=== PATIENT | female | born 1935 | race Caucasian/White ===

== ENCOUNTER 2018-10-26 01:16 | Inpatient (IN) | payer OTHER ==
[~2018-10-26] VITALS: Ht 162.6 cm; Wt 67.9 kg
--- NOTE | ~2018-10-26 | CON ---
[place], [place] REPORT OF CONSULTATION NAME: KRISSY SIDDIQI UNIT #: [id number] ROOM: [facility] DOCTOR: ESAU TRAN,DENVER BIRTHDATE: [birth year] DOS: 10/26/2018 ADDENDUM This note is an addendum to the note dictated by Dr. Garcia. I personally examined and assessed the patient today. MEDICATIONS, ALLERGIES AND HISTORY: Reviewed. I did independent examination of the patient and case was discussed with the patient and her family members as well as referring physician. The patient was admitted for syncope and noted to have elevated cardiac enzymes. Denies any chest pain. Physical exam was unremarkable except grade 1/6 systolic murmur. EKG and labs were reviewed. IMPRESSION: 1. Non-ST elevation myocardial infarction. 2. Syncope. 3. Pneumonia. 4. Urinary tract infection. 5. Hypertension. RECOMMENDATIONS: Continue aspirin, beta blockers, and heparin. Recommend cardiac catheterization due to non-ST elevation myocardial infarction. Risks and complications discussed. The patient is agreeable as was her family is agreeable. I tentatively scheduled her for cardiac catheterization on Monday due to her pneumonia and urinary tract infection. DENVER CIFUENTES MD CM:CONSTR:REPORT OF CONSULTATION 1829 10/27/18 2306 interface
--- NOTE | ~2018-10-26 | EKG ---
[place], [place] ELECTROCARDIOGRAM REPORT NAME: KRISSY SIDDIQI UNIT #: [id number] ROOM: [facility] DOCTOR: MILLIE DRAFT REPORT BIRTHDATE: [birth year] [facility] Test Date: 2018-10-27 Test Time: 05:40:14 Pat Name: KRISSY SIDDIQI Department: Room: [place] [address] Gender: F Antique Furniture Reproducer: Kaiden Alvarez : 1935 Requested By: LOYDA ABDULLAHI Order Number: [id number] Reading MD: Kaiden Candelario MD Measurements Intervals [place] Rate: 93 P: 66 [place]: 127 QRS: 35 QRSD: 77 T: 257 QT: 373 QTc: 465 Interpretive Statements Sinus rhythm Repol abnrm, prob ischemia, anterolateral lds Compared to ECG 10/26/2018 07:37:32 Premature atrial contractions are no longer present Electronically Signed On 10-31-2018 15:32:45 PST by Kaiden Candelario MD CM:EKGRPT:ELECTROCARDIOGRAM REPORT 0540 1532 LOYDA CHAVARRIA DRAFT REPORT LOYDA ABDULLAHI DO
--- NOTE | ~2018-10-26 | EKG ---
[place], [place] ELECTROCARDIOGRAM REPORT NAME: KRISSY SIDDIQI UNIT #: [id number] ROOM: [facility] DOCTOR: MILLIE DRAFT REPORT BIRTHDATE: [birth year] [facility] Test Date: 2018-10-26 Test Time: 07:37:32 Pat Name: KRISSY SIDDIQI Department: Room: [facility] Gender: F Piper Helper: Destiny Rhodes : 1935 Requested By: ANTONY HARRIS Order Number: [id number] Reading MD: Sarah Greer Measurements Intervals [place] Rate: 81 P: 68 [place]: 138 QRS: 38 QRSD: 83 T: 32 QT: 439 QTc: 510 Interpretive Statements Sinus rhythm Multiple ventricular premature complexes Consider left ventricular hypertrophy ST depr, consider ischemia, anterolateral lds Prolonged QT interval No previous ECG available for comparison Electronically Signed On 10-26-2018 12:53:37 PST by Sarah Greer CM:EKGRPT:ELECTROCARDIOGRAM REPORT 0737 1253 ANTONY HARRIS EPIPHANY DRAFT REPORT ANTONY HARRIS
--- NOTE | ~2018-10-26 | CON ---
[place], [place] REPORT OF CONSULTATION NAME: KRISSY SIDDIQI UNIT #: [id number] ROOM: [facility] DOCTOR: ALYSSA VILLAVICENCIO MD BIRTHDATE: [birth year] DOS: 10/26/2018 PULMONARY CONSULTATION, EVALUATION AND MANAGEMENT REASON FOR CONSULTATION: To assess the patient's current pulmonary nodule and acute pneumonia. HISTORY OF PRESENT ILLNESS: This 83-year-old female who has been brought to the hospital. The patient has been reported symptoms of acute cold as per daughter. She was noted very poor historian. The history was obtained mostly from the patient's daughter. She has been noted acute chest cold couple of weeks ago as per daughter. She has been treated for that and reported improvement in symptoms and then later on noted with recurrence of symptoms. The patient is with increased chest congestion and cough. The patient was also noted symptoms of dizziness with that. There were no symptoms of chest pain reported by the patient. The patient does have some symptoms of shortness of breath. Denies symptoms of wheezing. Denies symptoms of hemoptysis. REVIEW OF SYSTEMS: CONSTITUTIONAL SYMPTOMS: The patient denies symptoms of tiredness, fever or chills. EYES: Denies burning, redness, or tenderness. EARS, NOSE, THROAT SYMPTOMS: Denies sore throat, hoarseness, otalgia, postnasal drainage or epistaxis. CARDIOVASCULAR: Denies angina pain, palpitation, or edema of the lower extremities. GASTROINTESTINAL: Denies dysphagia, nausea, vomiting, diarrhea, abdominal pain, dysphagia, or abnormal weight loss. GENITOURINARY: No dysuria, suprapubic pain, or hematuria. MUSCULOSKELETAL SYMPTOMS: Denies any joint pain, redness or tenderness. CENTRAL NERVOUS SYSTEM: Complains of dizziness, but there were no syncopal episode reported. No tingling sensation of the lower extremity. Remaining systems reviewed, they were noted all negative. PAST MEDICAL HISTORY: Reported: 1. History of gastroesophageal reflux. 2. The patient with the memory loss with the possibility of early dementia. 3. History of depression. 4. Gastroesophageal reflux disease. PAST SURGICAL HISTORY: Reported known past surgery. SOCIAL HISTORY: Noted and lives at home. She has been noted tobacco use with the patient as a pack of cigarettes per day that was discontinued many years ago. Details were not reported. FAMILY HISTORY: The patient was known for father with complication related to malignancy and mother from natural causes. [place], [place] REPORT OF CONSULTATION NAME: KRISSY SIDDIQI UNIT #: [id number] ROOM: [facility] DOCTOR: LANEY DE JESUS MD,ALYSSA BIRTHDATE: [birth year] HOME MEDICATIONS: Use of zolpidem, Effexor and omeprazole. Medication, which has been used administered on this admission are aspirin 81 mg p.o. daily, Lipitor 80 mg at bedtime, vitamin D 50,000 international units daily, metoprolol tartrate 25 mg b.i.d., Effexor 75 mg daily, Mucinex 1200 mg b.i.d. Neutra-Phos 1.45 grams with meals t.i.d., omeprazole 20 mg daily, DuoNeb q. 4 hours, IV heparin therapeutic dose for the non-Q-wave MT protocol, Zithromax and IV Rocephin. DRUG ALLERGIES: As noted with no known drug allergies. PHYSICAL EXAMINATION: GENERAL: An 83-year-old white female currently noted comfortable resting on her bed without any acute distress this morning of assessment. Height of 5 feet 4 inches, weight 143 pounds, BMI 24. VITAL SIGNS: Recorded since admission, temperature admission 99.9 degree Fahrenheit, later afebrile, respiratory rate of 16-15, heart rate 74-79, blood pressure 132/56-153/61. The pulse oxygen saturation was recorded as 98% saturation at rest on room air. HEENT: Examination shows head was atraumatic. Eyes nonicterus. NECK: Supple. CARDIOVASCULAR: S1, S2 is audible. LUNGS: The patient was noted with crackles in the left lower lung. No wheezing. ABDOMEN: Soft, nontender. Bowel sounds present. EXTREMITIES: Noted without any acute edema. CENTRAL NERVOUS SYSTEM: Grossly intact without any focal deficit. MUSCULOSKELETAL: Without any gross deformities. LABORATORY DATA: CBC on 10/26/2018, this morning in the Emergency Room, WBC count 11.7, hemoglobin 10.7, platelet count was normal. The PT, PTT this morning was normal as well on admission. CMP on admission, normal BUN and creatinine. Sodium 134. Troponin 0.559. Phosphorus and magnesium, phosphorus 1.7, magnesium 2.6. The CBC repeated after admission to Intensive Care Unit, WBC count rather 11.9, hemoglobin 11.4, platelet count 335,000, which was normal. The BMP was noted as normal BUN and creatinine. The chest x-ray was noted with patchy infiltration was noted in the left lower lung. CT scan of the chest, which was done as well was seen with the findings of a large area of consolidation, infiltration noted in the left lower lobe. Mediastinal structure assessment suboptimal because of lack of IV contrast. Mild lymphadenopathy would be considered. Area of pleural thickening noted in the right apex, possibility of nodules at that time was reported by the radiologist not convincing finding to be at 1.8 x 0.8 cm in size. A 7 mm nodule noted in the left upper lung as a mucus impaction. A 4 mm nodule in the left fissure is intraparenchymal lymph node would be considered. There were no pleural effusions. There were no findings of gross emphysema. IMPRESSION: 1. The patient who had been currently admitted to the hospital with acute pneumonia complicated after the acute viral infection as an outpatient would be considered as a diagnosis between Staph aureus and Strep pneumonia complicated [place], [place] REPORT OF CONSULTATION NAME: KRISSY SIDDIQI UNIT #: [id number] ROOM: [facility] DOCTOR: LANEY DE JESUS MD,[facility] BIRTHDATE: [birth year] after the viral infection. 2. Question of the nodule in the right apex versus pleural thickening. 3. Intraparenchymal lymph node also noted in the left major fissure. 4. Possibility of dementia as well. 5. Past history of tobacco use. No diagnosed history of chronic obstructive pulmonary disease. PLAN OF MANAGEMENT: The patient will be continued on current medical management plan by cardiac service and non-ST segment elevated myocardial infarction consideration with medications, which are already ordered including the heparin. Antibiotic will be changed for coverage for the Staph aureus infection as well because of the current viral infection. Zithromax will be continued. Other assessment for the pneumonia has been ordered as well. Blood cultures had been taken. Other additional treatment changes will be made based on the progression of the illness. The patient assessment of pulmonary nodule will be recommended, but only after the resolution of pneumonia. The CT scan of the chest only needs to be repeated initially prior to making any further consideration for the pulmonary nodule other abnormalities. Thanks for allowing me to participate in the care of this patient. ALYSSA DAVISON MD CM:CONSTR:REPORT OF CONSULTATION 1255 11/06/18 0819 interface
--- NOTE | ~2018-10-26 | EKG ---
[place], [place] ELECTROCARDIOGRAM REPORT NAME: KRISSY SIDDIQI UNIT #: [id number] ROOM: [facility] DOCTOR: MILLIE DRAFT REPORT BIRTHDATE: [birth year] [facility] Test Date: 2018-10-27 Test Time: 03:08:45 Pat Name: KRISSY SIDDIQI Department: Room: [place] [address] Gender: F Didactic Program In Dietetics Director: : 1935 Requested By: LOYDA ABDULLAHI Order Number: [id number] Reading MD: Kaiden Candelario MD Measurements Intervals [place] Rate: 82 P: 66 [place]: 129 QRS: 33 QRSD: 79 T: 6 QT: 425 QTc: 497 Interpretive Statements Sinus rhythm Atrial premature complex Abnrm T, consider ischemia, anterolateral lds Compared to ECG 10/26/2018 07:37:32 Ventricular premature complex(es) no longer present Possible ischemia still present Electronically Signed On 10-30-2018 21:17:34 PST by Kaiden Candelario MD CM:EKGRPT:ELECTROCARDIOGRAM REPORT 16 LOYDA CHAVARRIA DRAFT REPORT LOYDA ABDULLAHI DO
--- NOTE | ~2018-10-26 | EKG ---
[place], [place] ELECTROCARDIOGRAM REPORT NAME: KRISSY SIDDIQI UNIT #: [id number] ROOM: [facility] DOCTOR: MILLIE DRAFT REPORT BIRTHDATE: [birth year] [facility] Test Date: 2018-10-26 Test Time: 04:24:16 Pat Name: KRISSY SIDDIQI Department: Room: [facility] Gender: F Manager Maintenance: Bela Taylor : 1935 Requested By: ANTONY HARRIS Order Number: [id number] Reading MD: Sarah Greer Measurements Intervals [place] Rate: 75 P: 69 [place]: 130 QRS: 40 QRSD: 83 T: 49 QT: 444 QTc: 496 Interpretive Statements Sinus rhythm Abnormal R-wave progression, early transition Consider left ventricular hypertrophy ST depr, consider ischemia, anterolateral lds Borderline prolonged QT interval Electronically Signed On 10-26-2018 12:53:25 PST by Sarah Greer CM:EKGRPT:ELECTROCARDIOGRAM REPORT 0424 1253 ANTONY HARRIS EPIPHANY DRAFT REPORT ANTONY HARRIS
--- NOTE | ~2018-10-26 | EKG ---
[place], [place] ELECTROCARDIOGRAM REPORT NAME: KRISSY SIDDIQI UNIT #: [id number] ROOM: [facility] DOCTOR: MILLIE DRAFT REPORT BIRTHDATE: [birth year] [facility] Test Date: 2018-10-27 Test Time: 00:30:33 Pat Name: KRISSY SIDDIQI Department: Room: [place] [address] Gender: F Rug Measurer: : 1935 Requested By: LOYDA ABDULLAHI Order Number: [id number] Reading MD: Kaiden Candelario MD Measurements Intervals [place] Rate: 86 P: 73 [place]: 131 QRS: 46 QRSD: 79 T: 68 QT: 405 QTc: 485 Interpretive Statements Sinus rhythm Multiple premature complexes, vent \T\ supraven Abnrm T, consider ischemia, anterolateral lds Baseline wander in lead(s) V4,V5 Compared to ECG 10/26/2018 07:37:32 Possible ischemia still present Electronically Signed On 10-30-2018 21:16:06 PST by Kaiden Candelario MD CM:EKGRPT:ELECTROCARDIOGRAM REPORT 15 LOYDA CHAVARRIA DRAFT REPORT LOYDA ABDULLAHI DO
--- NOTE | ~2018-10-26 | CON ---
[place], [place] REPORT OF CONSULTATION NAME: KRISSY SIDDIQI UNIT #: [id number] ROOM: [facility] DOCTOR: KRISTI MENENDEZ MD BIRTHDATE: [birth year] DOS: 10/26/2018 GASTROENDOSCOPIC REPORT HISTORY OF PRESENT ILLNESS: An 83-year-old patient who presented with shortness of breath, was found to have pneumonic infiltrate, antibiotic in effect. CBC: White blood cell was 11.7, H and H of 10.7 and 32. Differential with leukocytosis. INR was 1.0. Comprehensive metabolic panel, borderline normal. Troponin was repeatedly positive. CT scan of the abdomen shows some thickening of distal esophagus and multiple detail readings as noticed and reviewed with residents womens health nurse practitioner. H and H remains on repeated studies normal. PAST MEDICAL HISTORY: Falling episode, insomnia, gastroesophageal reflux, depression, pneumonia, protein-calorie malnutrition. PAST SURGICAL HISTORY: None. SOCIAL HISTORY: Past smoker. Nonalcohol consumer. FAMILY HISTORY: Noncontributory. ALLERGIES: No known medications. MEDICATIONS: Medication list reviewed, on omeprazole. REVIEW OF SYSTEMS: HEENT: Denies double vision, blurred vision. RESPIRATORY: Admits to shortness of breath. CARDIOVASCULAR: Denies chest pain. DIGESTIVE SYSTEM: As identified. No hematemesis, no hematochezia. No bleeding. No diarrhea. PHYSICAL EXAMINATION: VITAL SIGNS: Stable. HEENT: Head normocephalic, nontraumatic. Eyes: Pupils round, reactive to light. NECK: Supple, no thyromegaly, no cervical lymphadenopathy. CHEST: Symmetric anatomy, equal expansion. No wheeze, bibasilar scattered rhonchi. HEART: Normal sinus rhythm, no gallop, no murmur. ABDOMEN: Soft. No hepato-organomegaly. Bowel sounds within normal limit. EXTREMITIES: No cyanosis, no pedal edema, trace edema on left leg, could be demonstrated. NEUROLOGIC: Alert, oriented to time, place, person. IMPRESSION: Pneumonic infiltrate, suspected distal esophageal circumferential thickening. OTHER ADJUNCTIVE DIAGNOSES: As identified above. [place], [place] REPORT OF CONSULTATION NAME: KRISSY SIDDIQI UNIT #: [id number] ROOM: [facility] DOCTOR: SHON TRAN,KRISTI EDWARDSDATE: [birth year] PLAN AND DISCUSSION: Keeping her on Protonix 40 mg daily, pneumonic infiltrate is going to be addressed. Once she is stable, she is going to be addressed as outpatient for EGD and colonoscopy. Labs reviewed, records reviewed. Case discussed with the family. Case discussed with the resident womens health nurse practitioner. KRISTI MENENDEZ MD CM:CONSTR:REPORT OF CONSULTATION 1337 10/27/18 0118 interface
--- NOTE | ~2018-10-26 | EKG ---
[place], [place] ELECTROCARDIOGRAM REPORT NAME: KRISSY SIDDIQI UNIT #: [id number] ROOM: [facility] DOCTOR: MILLIE DRAFT REPORT BIRTHDATE: [birth year] [facility] Test Date: 2018-10-26 Test Time: 01:27:51 Pat Name: KRISSY SIDDIQI Department: Room: [facility] Gender: F Pharmacy Helper: Bela Taylor : 1935 Requested By: VERONICA MATTHEWS Order Number: [id number] Reading MD: Sarah Greer Measurements Intervals [place] Rate: 81 P: 66 [place]: 132 QRS: 16 QRSD: 87 T: 28 QT: 393 QTc: 457 Interpretive Statements Sinus rhythm Atrial premature complexes in couplets Abnormal R-wave progression, early transition ST depr, consider ischemia, anterolateral lds Electronically Signed On 10-26-2018 12:52:12 PST by Sarah Greer CM:EKGRPT:ELECTROCARDIOGRAM REPORT 0127 1252 VERONICA CHAVARRIA DRAFT REPORT VERONICA MATTHEWS DO
--- NOTE | ~2018-10-26 | PR ---
[place], [place] PROGRESS NOTE NAME: KRISSY SIDDIQI UNIT #: [id number] ROOM: [facility] DOCTOR: LANEY DE JESUS MD,ALYSSA BIRTHDATE: [birth year] DOS: 10/28/2018 PULMONARY CRITICAL CARE EVALUATION AND MANAGEMENT SUBJECTIVE: The patient has been noted with gradual decline of the respiratory status, change in mental status. She has been continued with BiPAP. A couple of arterial blood gases were done yesterday to assess the patient's ventilatory status. She has been started on BiPAP. The arterial blood gases have shown decline in the pH progressively. Urine output was also noted mildly decreased. The patient developed severe acute kidney injury as well with metabolic acidosis. Lactic acidosis is noted with lactic acid noted elevated at 10. She has been intubated and started on mechanical ventilation this morning. She has been also noted with interval development of hypotension last night, started on Tera-Synephrine which has been currently continued at 200 mcg/kg/min infusion. She was also ordered the intravenous bicarbonate drip as ordered by [facility]phrology Services. Mentally, the patient has been currently noted with change in mental status and does not respond to vocal commands. OBJECTIVE: VITAL SIGNS: Blood pressure ranged between 88/38 to 137/67. Respiratory rate was noted as 38-40. Heart rate is 78-106. Blood pressure is 130/57 to 112/52. Intake and output in the last 24 hours noted intake 1780 mL and output was 615 mL. In the last 8 hours, output was only 90 mL of urine. Pulse oxygen saturation is not good recording at the present time because of the current low perfusion status and mottling of the skin. Pulse ox saturation may be noted as 89-90%. This is on 100% oxygen supplementation mechanical ventilation. HEENT: The patient is currently intubated. Orogastric tube has been inserted. NECK: Supple. Multi-lumen catheter is in place in the left internal jugular vein with some bleeding noted around that insertion site. CARDIOVASCULAR: S1 and S2 is audible. LUNGS: Noted without any wheezing or crackles. ABDOMEN: Noted with absent bowel sounds. Mild distention. CENTRAL NERVOUS SYSTEM: The patient is noted unconscious at the present time. MUSCULOSKELETAL: Chronic deformity. SKIN: Noted with mottling of the skin, upper and lower extremities and also noted cold. LABORATORY DATA: Culture of the sputum from 10/26/2018 noted normal mali. Urine culture was noted as no bacterial growth. [place] [address], hemoglobin 9.0, hematocrit 28.4, platelet count 399,000 with 87% segmented neutrophils. The arterial blood gases noted a pH of 7.06, pCO2 of 31, pO2 of 70 prior to intubation and mechanical ventilation. ABG that was done yesterday afternoon noted a pH of 7.37, pCO2 of 31, pO2 of 76 on 35% oxygen with BiPAP at that time. Blood culture from 10/26/2018 noted no bacterial growth. Another arterial blood gas repeated noted a pH of 7.13, pCO2 of 32, pO2 of 115 on 100% oxygen supplementation. Lactic acid is 10.7. BMP of this morning: Glucose 174, BUN 23, creatinine 2.35, sodium 132, potassium 5.1, chloride of 99, CO2 of 11. Albumin is noted elevated severely at 22. IMAGING STUDIES: Chest x-ray that was done noted diffuse pulmonary edema [place], [place] PROGRESS NOTE NAME: KRISSY SIDDIQI UNIT #: [id number] ROOM: [facility] DOCTOR: LANEY DE JESUS MD,[facility] BIRTHDATE: [birth year] picture with ARDS consideration. Endotracheal tube was noted in appropriate position. IMPRESSION: 1. The patient who has been currently noted with findings consistent with acute respiratory distress syndrome, bilateral pulmonary infiltration with severe leukocytosis. Possible resistant infection in the lung with pneumonia and also the abdominal problem needs to be considered, such as ischemic bowel remains in consideration. 2. Progressive acute kidney injury. 3. Severe metabolic alkalosis, secondary hypoperfusion, severe sepsis and septic shock. 4. Elevation of CPK, mostly secondary to muscle injury with possible consideration of rhabdomyolysis. PLAN OF MANAGEMENT: At this time, the vasopressor will be changed to Levophed which is the pressor of choice for the patient's septic shock management. The peters-culture will be repeated. The patient will be started on intravenous bicarbonate drip. Transfer will be arranged for the patient to a tertiary care hospital for medical management of ARDS and multiorgan system injury. Continue antibiotic, adjustments will be made based on the current kidney function. The patient will be started on intravenous Zosyn as well for Gram-negative coverage. Discontinue intravenous Zithromax. Ventilator changes had been made per volume protective strategy for ARDS with a starter tidal volume of 300 mL based on 6 mg/kg ideal body weight, PEEP of 10 cm water and respiratory rate of 30. DVT prophylaxis, SCDs will be continued. Other supportive therapy, plan of management, care plan with additional treatment changes will be made based on progression of the illness. Overall prognosis of the patient is very critical. The assessment and management discussed with the patient's daughter as well. The assessment and management is also done with Dr. Chavez who will be making arrangements for the patient's transfer to a tertiary care hospital. Certainly, abdominal problem to be explored to exclude the ischemic colitis as well. Total time in pulmonary critical care evaluation and management is 45 minutes. [place], [place] PROGRESS NOTE NAME: KRISSY SIDDIQI UNIT #: [id number] ROOM: [facility] DOCTOR: ALYSSA VILLAVICENCIO MD BIRTHDATE: [birth year] ALYSSA DAVISON MD CM:PNESTEPHANIE [id number] ALYSSA DE JESUS MD 10/28/18 1541 interface
--- NOTE | ~2018-10-26 | PR ---
[place], [place] PROGRESS NOTE NAME: KRISSY SIDDIQI UNIT #: [id number] ROOM: [facility] DOCTOR: LANEY DE JESUS MD,ALYSSA BIRTHDATE: [birth year] DOS: 10/27/2018 PULMONARY PROGRESS NOTE SUBJECTIVE: The patient noted comfortable at this time, resting on the bed. She has been noted with epistaxis last night transiently which were resolved spontaneously without any intervention. The patient has not been noted any symptoms of fever or chills. She has been getting heparin with non-ST segment elevation myocardial infarction, temporarily placed on hold, but then resumed again back. She has not been noted an active bleeding. She has been noted fatigued and tired. Oxygen supplementation currently given 4 liter nasal cannula. The patient did not report any symptoms of abdominal pain, nausea or vomiting. OBJECTIVE: VITAL SIGNS: The highest temperature noted 100.5 degree Fahrenheit, 99.2 degree Fahrenheit, respiration 20-25. The heart rate of patient 82-108. The blood pressure was recorded as 108/53-126/66. HEENT: Bruising noted in the bridge of the nose. NECK: Supple. Head was atraumatic. CARDIOVASCULAR: S1, S2 is audible. LUNGS: The patient was noted without any wheezing or crackles at the present time. ABDOMEN: Soft, nontender. Bowel sounds present. EXTREMITIES: Without acute edema. MUSCULOSKELETAL: No deformities. CENTRAL NERVOUS SYSTEM: General weakness and fatigue were still noted. MUSCULOSKELETAL: Without any acute deformities. LABORATORY DATA: CBC, WBC count 13.7, hemoglobin 10.1, hematocrit 32.1, platelet count 326,000. The troponin, which were noted this morning at 4.74. Sputum culture noted normal mali. Gram stain of yesterday, many white blood cells, moderate epithelial cells, moderate gram-positive cocci in pairs and clusters and few gram-negative bacilli. The arterial blood gas that was obtained today to assess the patient's ventilatory status and oxygenation, pH of 7.42, pCO2 of 28, pO2 of 64 consistent with hypoxemia and well compensated metabolic acidosis. CMP of the patient this morning, BUN 12, creatinine 1.07, glucose 105. CBC: WBC count 13.7, hemoglobin 10.1, platelet count 326,000. She has a CT scan of the abdomen and pelvis, which was done last night ____. A CT of the ____ shows increased area of consolidation noted with small pleural effusions bilaterally. IMPRESSION: 1. The patient with acute pneumonia, most likely aspiration. 2. Recent fall. 3. Non-ST segment elevation myocardial infarction. 4. Possible nasal trauma, bruising noted today. 5. Epistaxis, which has been resolved for the patient spontaneous this time. 6. Significant weakness and fatigue. [place], [place] PROGRESS NOTE NAME: KRISSY SIDDIQI UNIT #: [id number] ROOM: [facility] DOCTOR: LANEY DE JESUS MD,ALYSSA BIRTHDATE: [birth year] PLAN OF MANAGEMENT: Continuation of the antibiotics, bronchodilators, oxygen supplementation. Other therapy, plan of management. Monitor respiratory status. No change in treatment will be necessary. Continue the oxygen supplementation as ____ of oxygenation. If necessary, the BiPAP could be used in case of worsening of the hypoxia with a manpower development advisor mask. Consider CT scan of the face to be done to exclude any major fracture of the face and nasal area because of the current bruising noted on the nose. She was also noted some mild black eye as well. The changes in the treatment, antibiotic will be done based on progression of the illness. Usual care. Supportive therapy, plan of management, care plan and treatment. The past medical, family, social, surgical history, as of yesterday remains unchanged as already dictated in the consultation. ALYSSA DAVISON MD CM:PNTRANS [phone] ALYSSA DE JESUS MD [id number]/[id number] interface
[2018-10-26 01:35] VITALS: BP 132/55
[2018-10-26 01:54] LABS: BASO # 0.1 10*3/uL (0.0-0.1); BASO % 0.5 % (0.0-1.0); EOS % 0.1 % (1.0-4.0); HEMATOCRIT 32.3 % (37.0-47.0); HEMOGLOBIN 10.7 g/dl (12.0-16.0); LYMPH % 16.8 % (27.0-41.0); MEAN CORPUSCULAR HGB 28.2 pg (27.0-31.0); MEAN CORPUSCULAR HGB CONC 33.1 g/dl (33.0-37.0); MONO # 0.7 10*3/uL (0.1-1.0); MONO % 6.1 % (3.0-9.0); NEUT # 8.9 10*3/uL (2.3-7.9); NEUT % 76.1 % (47.0-73.0); PLATELET COUNT AUTOMATED 318 10*3/uL (130-400); RED CELL DISTRI WIDTH 13.7 % (0-14.5); WHITE BLOOD COUNT 11.7 10*3/uL (4.8-10.8)
[2018-10-26 01:59] LABS: ACT PARTIAL THROMBO TIME 29.4 SECONDS (20.8-31.5)
[2018-10-26 02:06] LABS: ALBUMIN 2.7 gm/dl (3.1-4.5); ALKALINE PHOSPHATASE 114 U/L (45-117); BUN 11 mg/dl (7-24); CHLORIDE 101 mmol/L (98-107); POTASSIUM 3.8 mmol/L (3.5-5.1); SGOT/AST 30 IU/L (3-35); SGPT/ALT 30 U/L (12-78); SODIUM 134 mmol/L (136-145); TOTAL PROTEIN 6.9 gm/dL (6.4-8.2)
[2018-10-26 02:07] LABS: TROPONIN I 0.559 ng/ml (<0.045)
--- NOTE | 2018-10-26 02:09 | NUR ---
TROPONIN 0.559 DR MATTHEWS NOTIFIED
[2018-10-26 02:33] LABS: BILIRUBIN NEGATIVE (NEGATIVE); BLOOD 1+ (NEGATIVE); CLARITY SL CLOUDY (CLEAR); COLOR YELLOW (YELLOW); GLUCOSE NEGATIVE (NEGATIVE); KETONE NEGATIVE (NEGATIVE); LEUKO ESTERASE 3+ (NEGATIVE); NITRITE NEGATIVE (NEGATIVE); SPECIFIC GRAVITY <= 1.005 (1.005-1.030); UROBILINOGEN 0.2 E.U./dl (0.2-1.0)
[2018-10-26 02:44] LABS: BACTERIA 1+; EPITHELIAL CELLS 15-20; WBC 16-20 wbc/hpf (0-5)
[2018-10-26] MEDS ORDERED: ZOLPIDEM TART5 MG PO (03:40)
[2018-10-26] MEDS ORDERED: OMEPRAZOLE D/R20 MG PO (03:41)
[2018-10-26] MEDS ORDERED: VENLAFAXINE HYD75 M3 PO (03:41)
[2018-10-26 04:00] VITALS: BP 153/79
--- NOTE | 2018-10-26 04:00 | NUR ---
A 83, admitted to ICCU, under the services of SEVERO Prince DO with a diagnosis of NSTEMI, SYNCOPE. Chief complaint is FOUND UNRESPONSIVE ON TOILET AT HOME. Patient arrived via stretcher from ER. Monitor applied. Initial assessment completed. Vital signs taken and recorded. SEVERO PRINCE DO notified of admission to the unit. Orders received. See assessment for past medical history, medications and allergies. Patient and/or family oriented to unit. [facility] ICCU visitation policy reviewed. Clothing/patient valuable form completed. STEVAN RUBALCAVA
[2018-10-26 05:12] LABS: FREE T4 1.19 ng/dl (0.76-1.46); PHOSPHOROUS 1.7 mg/dL (2.5-4.9)
[2018-10-26 05:16] LABS: TROPONIN I 0.557 ng/ml (<0.045)
[2018-10-26 05:17] LABS: THYROID STIM HORMONE (HS) 4.41 uIU/ml (0.358-4.75)
--- NOTE | 2018-10-26 05:25 | NUR ---
DR SEAY NOTIFIED OF CONSULT. NO NEW ORDERS AT THIS TIME. STATES WILL BE IN TO SEE PT THIS AM.
--- NOTE | 2018-10-26 06:37 | NUR ---
DR MENENDEZ NOTIFIED OF CONSULT. STATES WILL SEE LATER TODAY.
[2018-10-26 06:52] LABS: VITAMIN D, 25-HYDROXY 9.8 ng/mL (30-100)
[2018-10-26 07:29] LABS: BASO # 0.1 10*3/uL (0.0-0.1); BASO % 0.4 % (0.0-1.0); EOS % 0.1 % (1.0-4.0); HEMATOCRIT 33.6 % (37.0-47.0); HEMOGLOBIN 11.4 g/dl (12.0-16.0); LYMPH % 17.1 % (27.0-41.0); MEAN CORPUSCULAR HGB 28.5 pg (27.0-31.0); MEAN CORPUSCULAR HGB CONC 33.9 g/dl (33.0-37.0); MONO # 0.6 10*3/uL (0.1-1.0); MONO % 5.4 % (3.0-9.0); NEUT # 9.1 10*3/uL (2.3-7.9); NEUT % 76.6 % (47.0-73.0); PLATELET COUNT AUTOMATED 335 10*3/uL (130-400); RED CELL DISTRI WIDTH 13.8 % (0-14.5); WHITE BLOOD COUNT 11.9 10*3/uL (4.8-10.8)
[2018-10-26 07:46] LABS: BUN 11 mg/dl (7-24); CHLORIDE 105 mmol/L (98-107); CREATININE 0.95 mg/dL (0.55-1.02); POTASSIUM 3.7 mmol/L (3.5-5.1); SODIUM 138 mmol/L (136-145)
[2018-10-26 07:50] LABS: TROPONIN I 0.538 ng/ml (<0.045)
--- NOTE | 2018-10-26 07:50 | NUR ---
DR FLORES MADE AWARE OF PT'S ELEVATED TROPONIN OF 0.538.
[2018-10-26 08:00] VITALS: BP 153/61
--- NOTE | 2018-10-26 08:58 | NUR ---
pt instructed on flutter. pt tolerated well. pt can do on her own. daughter is staying with pt and she will assist pt if needed
--- NOTE | 2018-10-26 09:55 | NUR ---
DR DAVISON MADE AWARE OF NEW CONSULT ORDER AND IN TO SEE PT AT THIS TIME.
--- NOTE | 2018-10-26 10:30 | NUR ---
[place] CATH PLACED 16F PATIENT TOLERATED WELL. DRAINNG STRAW CLEAR COLORED URINE 400 ML OUT DURING PLACEMENT.
--- NOTE | 2018-10-26 10:30 | NUR ---
PTT 37.8. PER PROTOCOL HEPARIN GTT INCREASED BY 2UNITS/KG/HR TO 14UNITS/KG/HR WHICH IS 9.1CC FOR THIS PT.
[2018-10-26 10:32] LABS: CKMB 2.5 ng/ml (0.5-3.6)
[2018-10-26 12:00] VITALS: BP 142/52
--- NOTE | 2018-10-26 13:20 | NUR ---
DR MENENDEZ IN TO SEE PT.
[2018-10-26 16:00] VITALS: BP 168/71
--- NOTE | 2018-10-26 16:36 | NUR ---
PTT 49.2. PER PROTOCOL HEPARIN GTT INCREASED TO 16UNITS/KG/HR WHICH IS 10.4CC/HR.
--- NOTE | 2018-10-26 18:45 | NUR ---
PT BECAME VERY AGITATED, TRYING TO CRAWL OUT OF BED, PULLED HER IV OUT. NOSE BLEEDING AND BLOOD AROUND HER MOUTH. DR FLORES IN ICCU AND CAME IN TO SEE PT. HEPARIN GTT STOPPED UNTIL STAT PTT AND CBC DONE. PT UNCONTROLLABLE YELLING SHE IS IN A HOTEL AND SHE WANTS OUT. POX 95% WITH 2L PLACED ON. HALDOL 2.5MG IV GIVEN AND MORPHINE 2MG IV GIVEN PER DR THOMAS. DAUGHTER AT BEDSIDE TRYING TO HELP HER TO RELAX.
[2018-10-26 18:59] LABS: BASO # 0.1 10*3/uL (0.0-0.1); BASO % 0.3 % (0.0-1.0); HEMATOCRIT 37.9 % (37.0-47.0); HEMOGLOBIN 12.6 g/dl (12.0-16.0); LYMPH # 3.1 10*3/uL (1.3-4.4); LYMPH % 21.1 % (27.0-41.0); MEAN CORPUSCULAR HGB 28.3 pg (27.0-31.0); MEAN CORPUSCULAR HGB CONC 33.2 g/dl (33.0-37.0); MEAN PLATELET VOLUME 9.9 fl (9.6-12.3); MONO # 0.8 10*3/uL (0.1-1.0); MONO % 5.3 % (3.0-9.0); NEUT # 10.7 10*3/uL (2.3-7.9); NEUT % 72.7 % (47.0-73.0); PLATELET COUNT AUTOMATED 407 10*3/uL (130-400); RED BLOOD COUNT 4.46 10*6/uL (4.10-5.10); RED CELL DISTRI WIDTH 14.1 % (0-14.5); WHITE BLOOD COUNT 14.7 10*3/uL (4.8-10.8)
[2018-10-26 19:09] LABS: ACT PARTIAL THROMBO TIME 50.7 SECONDS (20.8-31.5)
--- NOTE | 2018-10-26 19:30 | NUR ---
DR BRICE MADE AWARE THAT PT REMAINS VERY RESTLESS AND UNCONTROLLABLE. HALDOL AND MORPHINE INEFFECTIVE.
--- NOTE | 2018-10-26 19:46 | NUR ---
Patient yelling out patients family at bedside not helping her to calm down they are yelling at her when she sleeps to wake her up patients family asked not to do this. patient given haldol to calm her down.
[2018-10-26 20:00] VITALS: BP 163/98
[2018-10-26 22:28] LABS: ALBUMIN 2.5 gm/dl (3.1-4.5); ALKALINE PHOSPHATASE 123 U/L (45-117); BUN 11 mg/dl (7-24); CHLORIDE 105 mmol/L (98-107); CREATININE 0.93 mg/dL (0.55-1.02); POTASSIUM 3.7 mmol/L (3.5-5.1); SGOT/AST 23 IU/L (3-35); SGPT/ALT 28 U/L (12-78); SODIUM 137 mmol/L (136-145); TOTAL PROTEIN 6.8 gm/dL (6.4-8.2)
[2018-10-27] VITALS (27 sets, daily range): BP systolic 74–127; BP diastolic 39–66
--- NOTE | 2018-10-27 01:58 | NUR ---
DOCTOR VALADEZ NOTIFIED ABOUT PATIENT TROPONIN OF 2.550 I CALLED AND DOCTOR BRADLY WAS ON THE FLOOR AND TALKED TO DOCTOR VALADEZ HIM SLEF ABOUT PATIENTS TROPONIN AND EKG.
--- NOTE | 2018-10-27 03:56 | NUR ---
PATIENT WOKE UP DURING BLOOD AND WAS VERY COMBATIVE. AFTER LAB LEFT PATIENT AATTEMPTED TO HIT NURSEING WHILE TRYING TO REPOSITION HER. SHE RIPPED HER BIPAP OFF.
[2018-10-27 06:10] LABS: POTASSIUM 3.9 mmol/L (3.5-5.1)
[2018-10-27 06:18] LABS: BASO # 0.1 10*3/uL (0.0-0.1); BASO % 0.4 % (0.0-1.0); HEMATOCRIT 32.1 % (37.0-47.0); LYMPH # 1.8 10*3/uL (1.3-4.4); LYMPH % 13.1 % (27.0-41.0); MEAN CORPUSCULAR HGB CONC 31.5 g/dl (33.0-37.0); MEAN PLATELET VOLUME 10.3 fl (9.6-12.3); MONO # 0.6 10*3/uL (0.1-1.0); MONO % 4.2 % (3.0-9.0); NEUT # 11.2 10*3/uL (2.3-7.9); NEUT % 81.6 % (47.0-73.0); PLATELET COUNT AUTOMATED 326 10*3/uL (130-400); RED BLOOD COUNT 3.61 10*6/uL (4.10-5.10); RED CELL DISTRI WIDTH 14.5 % (0-14.5); WHITE BLOOD COUNT 13.7 10*3/uL (4.8-10.8)
[2018-10-27 06:27] LABS: HEMOGLOBIN 10.1 g/dl (12.0-16.0); MEAN CELL VOLUME 88.9 fl (81.0-99.0)
[2018-10-27 06:32] LABS: ALBUMIN 2.3 gm/dl (3.1-4.5); CREATININE 1.07 mg/dL (0.55-1.02); PHOSPHOROUS 4.4 mg/dL (2.5-4.9); TOTAL PROTEIN 6.4 gm/dL (6.4-8.2)
--- NOTE | 2018-10-27 07:35 | NUR ---
DR. FLORES AWARE OF ELEVATED TROPONIN. PATIENT ON HEPARIN DRIP. NO FURTHER ORDERS GIVEN AT THIS TIME.
--- NOTE | 2018-10-27 07:49 | NUR ---
PATIENT RESTING IN BED WITH BIPAP APPLIED, PATIENT IS IN SOFT RESTRAINTS AT THIS TIME FOR COMBATIVE BEHAVIORS. PATIENT SHOWS NO S/S OF DISTRESS AT THIS TIME. PATIENT IS UNABLE TO ANSWER QUESTIONS AT THIS TIME, WILL REASSESS. CALL LIGHT IS WITHIN REACH, MONITOR APPLIED. SEE ASSESSMENT.
--- NOTE | 2018-10-27 09:35 | NUR ---
DR. QURESHI IN ROOM TO SEE PATIENT AND DISCUSS PLAN OF CARE. FAMILY MEMBER PRESENT AT THE BEDSIDE.
--- NOTE | 2018-10-27 10:25 | NUR ---
DR. DAVISON IN TO SEE PATIENT. ORDERS RECEIVED.
[2018-10-27 10:49] LABS: ABG HCO3 17.9 mmol/l (22-26); ABG O2 SATURATION 92.3 % (95-97); ARTERIAL BLOOD GAS PCO2 28.3 mmHg (35-45); ARTERIAL BLOOD GAS PH 7.421 (7.35-7.45); ARTERIAL BLOOD GAS PO2 64.6 mmHg (80-90)
--- NOTE | 2018-10-27 11:01 | NUR ---
SPOKE WITH DR. DAVISON REGARDING BLOOD GAS RESULTS. PER DR. DAVISON BIPAP IS NOT NEEDED AT THIS TIME, NASAL CANNULA SHOULD BE ADEQUATE FOR OXYGENATION.
--- NOTE | 2018-10-27 13:20 | NUR ---
DR. FLORES NOTIFIED THAT PATIENT IS BECOMING INCREASINGLY AGITATED AND RESTLESS. ORDERS RECEIVED.
--- NOTE | 2018-10-27 14:46 | NUR ---
SPOKE WITH DR. DAVISON TO GIVE AN UPDATE. PATIENT WAS SHOWING RESPIRATORY DISTRESS WITH TACHYCARDIA AND TACHYPNEA. PATIENT PLACED BACK ON BIPAP. ORDERS RECEIVED.
--- NOTE | 2018-10-27 15:00 | NUR ---
DR. QURESHI ON THE FLOOR TO SEE PATIENT. ORDERS RECEIVED FOR IV LASIX.
[2018-10-27 15:10] LABS: ABG HCO3 17.8 mmol/l (22-26); ARTERIAL BLOOD GAS PCO2 31.4 mmHg (35-45); ARTERIAL BLOOD GAS PH 7.376 (7.35-7.45); ARTERIAL BLOOD GAS PO2 76.1 mmHg (80-90)
[2018-10-27 15:11] LABS: ABG BASE EXCESS -5.9 mmol/L (-2.0-2.0)
--- NOTE | 2018-10-27 15:13 | NUR ---
CARLOS ALVAREZ HELD PER DR. QURESHI FOR LOW BLOOD PRESSURE.
--- NOTE | 2018-10-27 15:15 | NUR ---
MESSAGE LEFT WITH ANSWERING SERVICE FOR CARDIOLOGY, CALL BACK NUMBER PROVIDED.
--- NOTE | 2018-10-27 15:43 | NUR ---
SPOKE WITH DR. VALADEZ REGARDING PATIENT SYMPTOMS AND RESPIRATORY DISTRESS. ORDERS RECEIVED FOR IV LASIX. PER DR. VALADEZ HE IS ON HIS WAY TO THE HOSPITAL AND WILL BE IN TO SEE THE PATIENT SOON, AND TO CALL IF ANYTHING ELSE ARISES.
--- NOTE | 2018-10-27 16:03 | NUR ---
TYLENOL GIVEN FOR A FEVER OF 100.2. WILL CONTINUE TO MONITOR AND REASSESS.
--- NOTE | 2018-10-27 17:43 | NUR ---
DR. VALADEZ ON THE FLOOR TO SEE THE PATIENT. NEW ORDERS RECEIVED.
--- NOTE | 2018-10-27 18:16 | NUR ---
DOPAMINE INITIATED. WILL CONTINUE TO MONITOR AND TITRATE TO MAINTAIN MAP >65 OR SYSTOLIC >[address] VALADEZ.
--- NOTE | 2018-10-27 18:41 | NUR ---
NOTIFIED DR. VALADEZ THAT PATIENT HAS HAD A SUSTAINED HEART RATE OF >150 FOR APPROXIMATELY 20 MINUTES AFTER THE INITIATION OF DOPAMINE WITH BLOOD PRESSURES REMAINING HYPOTENSIVE. ORDERS RECEIVED TO START THE PATIENT ON CHRISTOPHE-SYNEPHRINE.
--- NOTE | 2018-10-27 18:58 | NUR ---
PER DR. VALADEZ DOPAMINE D/C AND PATIENT STARTED ON CHRISTOPHE-SYNEPHRINE.
--- NOTE | 2018-10-27 19:18 | NUR ---
Shift chart check completed.24 HR chart check completed.
--- NOTE | 2018-10-27 19:20 | NUR ---
Dtr. Eid was called for update and permission for central line placement. Message left on ans. machine to return call.
--- NOTE | 2018-10-27 21:23 | NUR ---
DR SUTHERLAND OBTAINED PHONE CONSENT FROM PT'S DAUGHTER, SINDHU, FOR MLC INSERTION. 2.5MG IV HALDOL GIVEN AND PT COOPERATED FOR LIJ MLC INSERTION. DR SUTHERLAND DISCUSSED PT'S ATRIAL FIB WITH RVR WITH DR VALADEZ AND ENTERED ORDERS FOR DIGOXIN. 500MCG IV HAS BEEN GIVEN. NEOSYNEPHRINE WAS STARTED AT 50MCG/MIN AND HAS BEEN TITRATED UP TO 100MCG/MIN. HEPARIN DRIP CONTINUES AT 18 UNITS/KG/MIN. [place] PATENT MARIZA URINE. HR HAS SLOWED TO 120'S SINCE THE IV DIGOXIN. PT TURNS HERSELF SIDE TO SIDE FOR COMFORT. BED IS IN LOW POSITION WITH WHEELS LOCKED AND BED EXIT ALARM ACTIVATE. SHE REMAINS ON FULL FACE BIPAP WITH POX >92%. SEE ALL APPROPRIATE INTERVENTIONS.
--- NOTE | 2018-10-27 23:06 | NUR ---
PT TAKEN OFF BIPAP FOR DRINK OF WATER. REPOSITIONED FOR COMFORT.
[2018-10-28] VITALS (61 sets, daily range): BP systolic 87–152; BP diastolic 24–97
--- NOTE | 2018-10-28 02:26 | NUR ---
BIPAP REMOVED FOR INTERVAL, SHE'S ABLE TO EXPECTORATE SOME PINK MUCUS. COMPLETE BED BATH GIVEN. SOME BOODY DRAINAGE UNDER THE MLC DRESSING. DRESSING CHANGED. DIGOXIN 250MCG IV WAS GIVEN PER ORDER. MONITOR CONTINUES ATRIAL FIB, VR DID DROP BRIEFLY LESS THAN 100, BUT STAYING 110-140. PT TURNS HERSELF SIDE TO SIDE IN BED, ATTEMPTING TO FIND COMFORTABLE POSITION TO SLEEP AFTER THE BATH.
--- NOTE | 2018-10-28 04:22 | NUR ---
SOME OOZING AGAIN UNDER MLC DRESSING. WILL CONTINUE TO MONITOR. BP HAS BEEN CHECKED MANUALLY AND WITH AUTO CUFF SEVERAL TIMES AND ARE CONSISTENT. NEOSYNEPHRINE CONTINUES AT 125MCG/MIN. HEPARIN DRIP CONTINUES. BIPAP IN PLACE. PT AROUSES EASILY, IS COOPERATIVE.
--- NOTE | 2018-10-28 04:38 | NUR ---
BIPAP OFF FOR ORAL CARE AND DRINK OF WATER. NASAL O2 ON AT 4L/MIN DURING THIS INTERVAL. WITHIN A MINUTE HER HR INCREASES AND HER RESPIRATORY RATE INCREASES. BIPAP REAPPLIED. TAKES SEVERAL MINUTES FOR HR TO RECOVER. RESPIRATORY RATE TAKES LONGER.
--- NOTE | 2018-10-28 05:38 | NUR ---
PT C/O ABDOMINAL PAIN. SHE DENIED NAUSEA OR NEEDING TO HAVE A BM. LOW URINE OUTPUT IN [place]. BLADDER SCAN WITH NO RESIDUAL. REPOSITIONED IN BED. DR MURRAY NOTIFIED, ORDERS RECEIVED.
[2018-10-28 06:26] LABS: HEMATOCRIT 28.4 % (37.0-47.0); MEAN CELL VOLUME 87.1 fl (81.0-99.0); MEAN CORPUSCULAR HGB 27.6 pg (27.0-31.0); MEAN CORPUSCULAR HGB CONC 31.7 g/dl (33.0-37.0); MEAN PLATELET VOLUME 10.3 fl (9.6-12.3); PLATELET COUNT AUTOMATED 399 10*3/uL (130-400); RED BLOOD COUNT 3.26 10*6/uL (4.10-5.10); RED CELL DISTRI WIDTH 14.6 % (0-14.5); WHITE BLOOD COUNT 30.7 10*3/uL (4.8-10.8)
--- NOTE | 2018-10-28 06:28 | NUR ---
HALDOL 2.5MG IV GIVEN PER ORDER. PT RESTING QUIETLY AT THIS TIME. HER HEART RATE HAS DECREASED MORE AFTER THE 250MCG OF DIGOXIN. NOW SHOWING NSR WITH PAC'S. URINE OUTPUT WAS 90ML THIS SHIFT.
[2018-10-28 06:39] LABS: ALBUMIN 2.1 gm/dl (3.1-4.5); CREATININE 1.67 mg/dL (0.55-1.02); PHOSPHOROUS 3.7 mg/dL (2.5-4.9); POTASSIUM 3.9 mmol/L (3.5-5.1); TOTAL PROTEIN 6.2 gm/dL (6.4-8.2)
[2018-10-28 07:39] LABS: BASOPHILS 1 % (0-1); PLATELET SUFFICIENCY NORMAL (NORMAL); TOTAL CELLS COUNTED 100 #CELLS
--- NOTE | 2018-10-28 07:46 | NUR ---
PATIENT RESTING IN BED WITH BIPAP APPLIED. PATIENT C/O BELLY PAIN AND INCREASED RESTLESSNESS. PATIENT IS A&OX2 AND IS ABLE TO TURN WITH MINIMAL ASSIST. CALL LIGHT WITHIN REACH. SEE ASSESSMENT.
[2018-10-28 09:48] LABS: ABG HCO3 8.6 mmol/l (22-26); ABG O2 SATURATION 82.6 % (95-97); ARTERIAL BLOOD GAS PCO2 31.8 mmHg (35-45); ARTERIAL BLOOD GAS PO2 70.1 mmHg (80-90)
[2018-10-28 09:49] LABS: ABG BASE EXCESS -20.3 mmol/L (-2.0-2.0)
[2018-10-28 09:51] LABS: ARTERIAL BLOOD GAS PH 7.061 (7.35-7.45)
--- NOTE | 2018-10-28 09:56 | NUR ---
DR. DAVISON NOTIFIED OF BLOOD GAS RESULTS. INTUBATION RECOMMENDED AT THIS TIME.
--- NOTE | 2018-10-28 09:56 | NUR ---
DR. FLORES NOTIFIED OF BLOOD GAS RESULTS. NO FURTHER ORDERS GIVEN AT THIS TIME.
--- NOTE | 2018-10-28 09:58 | NUR ---
DR. FLORES AWARE OF RECOMMENDATION FOR INTUBATION PER DR. DAVISON DUE TO PATIENT DETERIORATION.
--- NOTE | 2018-10-28 10:20 | NUR ---
PATIENT SUCCESSFULLY INTUBATED BY DR. JUAREZ. ETOMIDATE WAS USED FOR INTUBATION.
--- NOTE | 2018-10-28 10:28 | NUR ---
DIPRIVAN STARTED AT 10MCG. PATIENT LIGHTLY SEDATED AT THIS TIME.
--- NOTE | 2018-10-28 10:38 | NUR ---
ENDOTUBE AND OG TUBE PLACEMENT CONFIRMED BY CXR.
--- NOTE | 2018-10-28 10:40 | NUR ---
DR. FLORES SPOKE WITH DR. FRANCO REGARDING ROUTINE CONSULT.
[2018-10-28 11:02] LABS: CREATININE 2.35 mg/dL (0.55-1.02)
[2018-10-28 11:04] LABS: POTASSIUM 5.1 mmol/L (3.5-5.1)
--- NOTE | 2018-10-28 11:17 | NUR ---
Infomed consent obtained from family by for elective intubation. Patient intubated with Other endotracheal tube orally X 2 attempts. Patient sedated with ETOMIDATE 20MG Respiratory therapy at bedside. Crash cart with emergency drugs available. Endotracheal tube inflated with 8cc's. Lungs auscultated for equality of breath sounds. Tube secured with Tube tamer at cm's. at level of 24CM. Patient tolerated procedure WELL. Portable chest X-ray obtained and reviewed for tube placement. Patient connected to ventilator CMV mode, 500 tidal volume, 100 FIO2, 0 PEEP, and 0 pressure support. KELSEY SIMONS
[2018-10-28 11:40] LABS: ABG HCO3 10.4 mmol/l (22-26); ABG O2 SATURATION 96.2 % (95-97)
[2018-10-28 11:43] LABS: ABG BASE EXCESS -17.3 mmol/L (-2.0-2.0); ARTERIAL BLOOD GAS PH 7.137 (7.35-7.45)
[2018-10-28 13:56] LABS: URINE CHLORIDE, RANDOM < 10 mmol/L
--- NOTE | 2018-10-28 15:30 | NUR ---
[facility] HERE TO TRANSFER PATIENT TO [facility].
--- NOTE | 2018-10-28 16:17 | NUR ---
PATIENT CONDITION CHANGE, CARDIAC RHYTHM CHANGES NOTED BY [facility] AND PT HYPOTENSIVE.
[2018-10-28 16:24] LABS: ABG HCO3 16.3 mmol/l (22-26); ABG O2 SATURATION 85.6 % (95-97); ARTERIAL BLOOD GAS PCO2 37.9 mmHg (35-45); ARTERIAL BLOOD GAS PH 7.258 (7.35-7.45); ARTERIAL BLOOD GAS PO2 62.4 mmHg (80-90)
[2018-10-28 16:25] LABS: ABG BASE EXCESS -9.4 mmol/L (-2.0-2.0)
--- NOTE | 2018-10-28 16:34 | NUR ---
CODE BLUE INITIATED. RHYTHM CHANGES NOTED, ACLS PROTOCOL INITIATED.
--- NOTE | 2018-10-28 17:55 | NUR ---
PROGRESSIVE CARE UNIT REGISTERED NURSE AND PHYSICIAN PRESENT THROUGHOUT CODE BLUE AND AWARE OF TIME OF . FAMILY IN ROUTE TO HOSPITAL.
--- NOTE | 2018-10-28 18:30 | NUR ---
ONE CALL NOTIFIED THAT PATIENT . BODY RELEASED DUE TO SEPSIS. NUMBER RECEIVED.
--- NOTE | 2018-10-28 19:25 | NUR ---
COMMUNITY HEALTH COORDINATOR FROM [facility] HERE TO TAKE THE BODY VIA CART.
--- NOTE | 2018-10-29 08:14 | NUR ---
PHYSICAL THERAPY Nursing screen received. PAtient discharged. Thank you. Rhiannon Wright,PT
== END 2018-10-28 19:25 | disposition expired | DRG 871 ==
LOC: ED 01:16 → EDHOLD 02:48 → ICCU 03:54
PROVIDERS: Internal Medicine; Internal Medicine Critical Care Medicine; Student in an Organized Health Care Education/Training Program; ADMIT Internal Medicine
PROC: 5A09457 Assistance with Respiratory Ventilation, 24-96 Consecutive Hours, Continuous Positive Airway Pressure (ICD-10-PCS; principal; 2018-10-27)
PROC: 02HV33Z Insertion of Infusion Device into Superior Vena Cava, Percutaneous Approach (ICD-10-PCS; principal; 2018-10-27)
PROC: B548ZZA Ultrasonography of Superior Vena Cava, Guidance (ICD-10-PCS; principal; 2018-10-27)
PROC: 5A12012 Performance of Cardiac Output, Single, Manual (ICD-10-PCS; 2018-10-28)
PROC: 0BH17EZ Insertion of Endotracheal Airway into Trachea, Via Natural or Artificial Opening (ICD-10-PCS; 2018-10-28)
DX: A41.9 Sepsis, unspecified organism (principal); I21.4 Non-ST elevation (NSTEMI) myocardial infarction; J18.1 Lobar pneumonia, unspecified organism; E43 Unspecified severe protein-calorie malnutrition; R65.21 Severe sepsis with septic shock; J96.91 Respiratory failure, unspecified with hypoxia; E87.1 Hypo-osmolality and hyponatremia; N17.9 Acute kidney failure, unspecified; E87.2 Acidosis; E87.3 Alkalosis; N39.0 Urinary tract infection, site not specified; K29.70 Gastritis, unspecified, without bleeding; K21.0 Gastro-esophageal reflux disease with esophagitis; K22.70 Barrett's esophagus without dysplasia; I27.20 Pulmonary hypertension, unspecified; I48.91 Unspecified atrial fibrillation; R04.0 Epistaxis; R59.1 Generalized enlarged lymph nodes; K22.8 Other specified diseases of esophagus; R91.1 Solitary pulmonary nodule; R55 Syncope and collapse; K44.9 Diaphragmatic hernia without obstruction or gangrene; D64.9 Anemia, unspecified; R73.9 Hyperglycemia, unspecified; G47.00 Insomnia, unspecified; F32.9 Major depressive disorder, single episode, unspecified; E83.39 Other disorders of phosphorus metabolism; E83.41 Hypermagnesemia; D47.3 Essential (hemorrhagic) thrombocythemia; R74.0 Nonspecific elevation of levels of transaminase and lactic acid dehydrogenase [LDH]; Z87.891 Personal history of nicotine dependence; Z79.899 Other long term (current) drug therapy; Z87.01 Personal history of pneumonia (recurrent); Z68.24 Body mass index [BMI] 24.0-24.9, adult